=== PATIENT | female | born 1990 | race Two or more races ===

== ENCOUNTER 2019-05-26 12:13 | Emergency (ER) | payer OTHER ==
[~2019-05-26] VITALS: Ht 167.6 cm; Wt 68.0 kg
[2019-05-26] MEDS ORDERED: SODIUM CHLORIDE 0.9% 1,000 ML IV ONE (12:44)
[2019-05-26] MEDS ORDERED: MORPHINE SULFATE 4 MG/ML SYR/VIAL IV ONE (12:45)
[2019-05-26] MEDS ORDERED: ONDANSETRON HCL 4 MG/2 ML VIAL IV ONE (12:45)
[2019-05-26 12:53] LABS: Basophils # (auto) 0.1 uL; Basophils % (auto) 0.9 % (0.0-2.0); Eosinophils # (auto) 0 uL; Eosinophils % (auto) 0.5 % (0.0-7.0); Hemoglobin 9.4 g/dL (12.2-16.2); Lymphocytes # (auto) 1.6 uL; Lymphocytes % (auto) 26.4 % (10.0-50.0); Mean Corpuscular Hemoglobin 19.9 pg (28.0-32.0); Mean Corpuscular Hgb Conc. 30.5 g/dL (32.0-36.0); Mean Corpuscular Volume 65.2 fL (80.0-100.0); Monocytes # (auto) 0.5 uL; Monocytes % (auto) 7.7 % (0.0-12.0); Neutrophils # (auto) 3.8 uL; Neutrophils % (auto) 64.5 % (37.0-80.0); Nucleated Red Blood Cells % 0.1 %; Platelet Count (auto) 286 10^3/uL (140-450); Red Blood Cells 4.75 10^6/uL (4.0-5.20); Red Cell Distribution Width 16.8 % (11.8-14.3)
[2019-05-26 13:15] LABS: Albumin 4.2 g/dL (3.4-5.0); Calcium 8.9 mg/dL (8.5-10.1); Potassium 3.9 mmol/L (3.5-5.1)
[2019-05-26 13:18] LABS: BUN/Creatinine Ratio 14.8; Bilirubin, Total 0.8 mg/dL (0.2-1.0); Total Protein 8.1 g/dL (6.4-8.2)
[2019-05-26 13:28] VITALS: BP 120/72
[2019-05-26 13:32] LABS: Urine WBC None Seen /hpf (0 - 5)
[2019-05-26 13:57] LABS: Urine Bacteria NONE SEEN /hpf (None Seen); Urine Blood TRACE /uL (Negative); Urine Mucus FEW (None Seen); Urine Specific Gravity 1.009 (1.001-1.035)
== END 2019-05-26 15:42 | disposition home or self-care (01) ==
LOC: EDBD 12:13 → EEVIPCON 12:20 → ER 12:20
DX: K80.80 Other cholelithiasis without obstruction (principal); D64.9 Anemia, unspecified; R11.2 Nausea with vomiting, unspecified
CPT/HCPCS: 36415; 76705; 80053; 81001; 83690; 85025; 96361; 96374; 96375; 99284; J2270; J2405; J7030

== ENCOUNTER 2020-10-06 14:50 | Inpatient (IN) | payer OTHER ==
[~2020-10-06] VITALS: Ht 167.6 cm; Wt 71.1 kg
[2020-10-06] MEDS ORDERED: MORPHINE SULFATE 4 MG/ML SYR/VIAL IV PRN (17:30)
[2020-10-06 17:31] VITALS: BP 124/75
[2020-10-06] MEDS ORDERED: LACT10SO3 PO (17:42)
[2020-10-06] MEDS ORDERED: FERR-20 PO (17:42)
[2020-10-06] MEDS ORDERED: ACET-1156 PO (17:42)
[2020-10-06] MEDS ORDERED: OMEP20TA PO (17:42)
[2020-10-06] MEDS: D5W/SOD CHL 0.45% 1,000 ML IV SCH (18:08)
[2020-10-06 19:43] LABS: Basophils # (auto) 0.1 10 ^3/uL (0-0.2); Eosinophils # (auto) 0.1 10 ^3/uL (0-0.8); Hemoglobin 8.7 g/dL (12.2-16.2); Monocytes # (auto) 0.5 10 ^3/uL (0-1.3); Neutrophils # (auto) 2.8 10 ^3/uL (1.6-8.6); Nucleated Red Blood Cells % 0.1 %; White Blood Cell 5.5 10^3/uL (4.4-10.8)
[2020-10-06 19:46] LABS: Basophils % (auto) 1.9 % (0.0-2.0); Eosinophils % (auto) 1.5 % (0.0-7.0); Hematocrit 28.2 % (36.0-46.0); Lymphocytes # (auto) 1.9 10 ^3/uL (0.4-5.4); Lymphocytes % (auto) 35.2 % (10.0-50.0); Mean Corpuscular Hemoglobin 19.4 pg (28.0-32.0); Mean Corpuscular Hgb Conc. 30.9 g/dL (32.0-36.0); Monocytes % (auto) 9.8 % (0.0-12.0); Neutrophils % (auto) 51.6 % (37.0-80.0); Platelet Count (auto) 254 10^3/uL (140-450); Red Blood Cells 4.47 10^6/uL (4.0-5.20)
[2020-10-06 20:00] VITALS: BP 110/68
[2020-10-06 20:00] LABS: Albumin 3.7 g/dL (3.4-5.0); Potassium 3.5 mmol/L (3.5-5.1)
[2020-10-06 20:03] LABS: BUN/Creatinine Ratio 20.4; Bilirubin, Total 0.3 mg/dL (0.2-1.0); Total Protein 6.8 g/dL (6.4-8.2)
[2020-10-06 20:08] LABS: INR 1.04 (0.9-1.15)
[2020-10-06 22:16] VITALS: BP 110/68
[2020-10-07] MEDS: D5W/SOD CHL 0.45% 1,000 ML IV SCH ×3 (00:17→13:30)
[2020-10-07 04:56] VITALS: BP 108/63
[2020-10-07 09:00] VITALS: BP 113/68
[2020-10-07] MEDS: PANTOPRAZOLE 40 MG TAB PO SCH (09:34)
[2020-10-07] MEDS: ENOXAPARIN SOD 40 MG/0.4 ML SYRINGE SC SCH (09:34)
[2020-10-07] MEDS ORDERED: LACTULOSE 20Gm/30ML SOLN PO ONE (10:00)
[2020-10-07] MEDS ORDERED: POTASSIUM EFFERVESENT TAB 25 MEQ PO ONE ×2 (11:15→20:00)
[2020-10-07] MEDS ORDERED: BARIUM SULFATE 98% 340 GM PWDR ONE (11:47)
[2020-10-07] MEDS ORDERED: EZ PAQUE SUSP 12OZ BTL ONE (11:48)
[2020-10-07] MEDS ORDERED: EZ-GAS II GRANULES (RADIOLOGY USE) PO ONE (11:48)
[2020-10-07] MEDS: FERROUS SULFATE 325mg EC TAB PO SCH ×2 (12:00→18:00)
[2020-10-07 12:54] VITALS: BP 110/63
[2020-10-07 13:34] LABS: Urine Bacteria FEW /hpf (None Seen); Urine Blood 3+ /uL (Negative); Urine Mucus FEW (None Seen); Urine Specific Gravity 1.018 (1.001-1.035); Urine WBC 44 /hpf (0 - 5)
[2020-10-07] MEDS ORDERED: BUPIVACAINE HCL 50 ML ONE (15:42)
[2020-10-07] MEDS ORDERED: LIDOCAINE 1% HCL (LOCAL ANESTH.) INJ 20ML MDV ONE (15:42)
[2020-10-07] MEDS ORDERED: cefOXitin 2GM/100ML 100 ML IV ONE (16:07)
[2020-10-07] MEDS ORDERED: MEPERIDINE HCL (50 MG/ML) 1 ML VIAL ONE (16:28)
[2020-10-07] MEDS ORDERED: MIDAZOLAM HCL 1MG/1ML-2 ML VIAL ONE (16:28)
[2020-10-07] MEDS ORDERED: fentaNYL CITRATE 100 MCG/2 ML VL ONE ×2 (16:28→17:05)
[2020-10-07] MEDS ORDERED: PROPOFOL 10 MG/ML 20 ML IV ONE (16:36)
[2020-10-07] MEDS ORDERED: ROCURONIUM 10MG/ML 10ML VIAL IV ONE (16:36)
[2020-10-07] MEDS ORDERED: DexAMETHasone SOD PHOS 10MG/1ML VIAL INJ ONE (16:36)
[2020-10-07] MEDS ORDERED: HYDROmorphone HCL 2 MG/ML VL IV PRN ×2 (16:45→18:15)
[2020-10-07] MEDS ORDERED: LABETALOL HCL 5 MG/ML 4ML SYRINGE IV PRN ×2 (16:45→18:15)
[2020-10-07] MEDS ORDERED: ePHEDrine SULFATE 50 MG/ML AMP IV PRN ×2 (16:45→18:15)
[2020-10-07] MEDS ORDERED: KETOROLAC TROMETH 30 MG/ML 1ML VIAL IV ONE ×2 (16:45→18:15)
[2020-10-07] MEDS ORDERED: MIDAZOLAM HCL 1MG/1ML-2 ML VIAL IV PRN ×2 (16:45→18:15)
[2020-10-07] MEDS ORDERED: MORPHINE SULFATE 4 MG/ML SYR/VIAL IV PRN ×3 (16:45→18:15)
[2020-10-07] MEDS ORDERED: ONDANSETRON HCL 4 MG/2 ML VIAL IV PRN ×2 (16:45→18:15)
[2020-10-07 20:00] VITALS: BP 113/67
[2020-10-07] MEDS: ONDANSETRON HCL 4 MG/2 ML VIAL IV PRN (20:52)
[2020-10-07] MEDS: OXYCODONE W/ ACETAMINOPHEN 5/325MG TABLET PO PRN (20:52)
[2020-10-07 21:19] VITALS: BP 113/67
[2020-10-08] MEDS: OXYCODONE W/ ACETAMINOPHEN 5/325MG TABLET PO PRN ×4 (00:30→15:25)
[2020-10-08] MEDS: ONDANSETRON HCL 4 MG/2 ML VIAL IV PRN (00:36)
[2020-10-08] MEDS: D5W/SOD CHL 0.45% 1,000 ML IV SCH ×2 (02:02→10:00)
[2020-10-08 05:00] VITALS: BP 102/62
[2020-10-08 09:00] VITALS: BP 117/70
[2020-10-08] MEDS: PANTOPRAZOLE 40 MG TAB PO SCH (10:00)
[2020-10-08] MEDS: FERROUS SULFATE 325mg EC TAB PO SCH (10:00)
[2020-10-08] MEDS: ENOXAPARIN SOD 40 MG/0.4 ML SYRINGE SC SCH (10:01)
[2020-10-08 13:00] VITALS: BP 122/66
== END 2020-10-08 15:37 | DRG 418 ==
LOC: EEVIPCON 17:00 → WEST WING 17:00
PROVIDERS: ADMIT Internal Medicine; ATTEND Internal Medicine
PROC: 0FT44ZZ Resection of Gallbladder, Percutaneous Endoscopic Approach (ICD-10-PCS; principal; 2020-10-07 16:23)
DX: K80.20 Calculus of gallbladder without cholecystitis without obstruction (principal); Q44.1 Other congenital malformations of gallbladder; Z20.822 Contact with and (suspected) exposure to COVID-19; Z82.49 Family history of ischemic heart disease and other diseases of the circulatory system; Z83.3 Family history of diabetes mellitus
CPT/HCPCS: 36415; 71045; 76705; 80053; 81001; 84702; 85025; 85610; 85730; 86850; 86900; 86901; 87081; 87426; 93005; G0378; J0694; J1100; J2001; J2250; J2405; J2704; J3490